=== PATIENT | female | born 1995 | race Caucasian/White ===

== ENCOUNTER 2018-08-06 18:12 | Inpatient (IN) | payer BC ==
[2018-08-06] MEDS ORDERED: Methylergonovine 0.2 MG/1 ML Amp IM PRN (20:09)
[2018-08-06] MEDS ORDERED: Ondansetron 4 MG/2 ML SDV IV PRN (20:09)
[2018-08-06] MEDS ORDERED: Carboprost Tromethamine 250 MCG/1 ML Amp IM PRN (20:09)
[2018-08-06] MEDS ORDERED: Water For Irrigation,Sterile 1,000 ML Container IRR PRN (20:09)
[2018-08-06] MEDS ORDERED: Tranexamic Acid 1,000 MG in Sodium Chloride 0.9% 100 ML IV PRN (20:09)
[2018-08-06] MEDS ORDERED: Sodium Chloride 0.9% 10 ML Syringe FLUSH PRN (20:09)
[2018-08-06] MEDS ORDERED: Misoprostol 200 MCG Tab PO PRN (20:09)
[2018-08-06] MEDS ORDERED: Lidocaine 1% 50 ML MDV INJECT PRN (20:09)
[2018-08-06] MEDS ORDERED: Sodium Chloride 0.9% 2.5 ML Syringe FLUSH PRN (20:09)
[2018-08-06] MEDS ORDERED: Terbutaline 1 MG/ML SDV SUBCUT PRN (20:09)
[2018-08-06] MEDS ORDERED: Nalbuphine 10 MG/1 ML Vial IVPUSH PRN (20:09)
[2018-08-06] MEDS ORDERED: Oxytocin/0.9 % Sodium Chloride 30 UNIT/500 ML BAG IV SCH ×2 (20:15)
[2018-08-06] MEDS ORDERED: Misoprostol 25 MCG (1/4 of 100 MCG) Tab VAG PRN (21:00)
[2018-08-06] MEDS: Lactated Ringers 1,000 ML IV SCH (21:08)
[2018-08-07] MEDS ORDERED: Misoprostol 25 MCG (1/4 of 100 MCG) Tab VAG PRN (01:00)
[2018-08-07] MEDS: Butorphanol 1 MG/ML SDV IVPUSH PRN ×3 (01:42→04:35)
[2018-08-07] MEDS ORDERED: Promethazine 25 MG/ML SDV IM ONE ×2 (02:40→08:56)
[2018-08-07] MEDS: Lactated Ringers 1,000 ML IV SCH ×2 (04:46→05:50)
--- NOTE | 2018-08-07 05:08 | PCM.PREANE ---
Preanesthetic Assessment - Anesthesia/Transfusion/Family Hx Anesthesia History: Prior Anesthesia Without Reaction Family History of Anesthesia Reaction: No Transfusion History: No Prior Transfusion(s) - Review of Systems General: No Symptoms Pulmonary: No Symptoms Cardiovascular: No Symptoms Gastrointestinal: No Symptoms Neurological: No Symptoms Other: Reports: None - Physical Assessment Height: 5 ft Weight: 129.274 kg ASA Class: 3 Thyro-Mental Finger Breadths: 3 Mouth Opening Finger Breadths: 3 Lungs: Clear to Auscultation, Normal Respiratory Effort Cardiovascular: Regular Rate, Regular Rhythm - Lab Values: Laboratory Last Values WBC 9.75 K/uL (4.0-11.0) 08/06/18 20:31 RBC 4.26 M/uL (4.30-5.90) L 08/06/18 20:31 Hgb 13.0 g/dL (12.0-16.0) 08/06/18 20:31 Hct 38.6 % (36.0-46.0) 08/06/18 20:31 MCV 90.6 fL (80.0-98.0) 08/06/18 20:31 MCH 30.5 pg (27.0-32.0) 08/06/18 20:31 MCHC 33.7 g/dL (31.0-37.0) 08/06/18 20:31 RDW Std Deviation 46.0 fl (28.0-62.0) 08/06/18 20:31 RDW Coeff of Darrell 14 % (11.0-15.0) 08/06/18 20:31 Plt Count 166 K/uL (150-400) 08/06/18 20:31 MPV 10.10 fL (7.40-12.00) 08/06/18 20:31 Nucleated RBC % 0.0 /100WBC 08/06/18 20:31 Nucleated RBCs # 0 K/uL 08/06/18 20:31 Blood Type O POSITIVE 08/06/18 20:31 Antibody Screen NEGATIVE 08/06/18 20:31 - Allergies Allergies/Adverse Reactions: Allergies Allergy/AdvReac Type Severity Reaction Status Date / Time Penicillins Allergy Intermediate Hives Verified 07/31/18 21:53 - Acknowledgements Anesthesia Type Planned: Epidural Pt an Appropriate Candidate for the Planned Anesthesia: Yes Alternatives and Risks of Anesthesia Discussed w Pt/Guardian: Yes Pt/Guardian Understands and Agrees with Anesthesia Plan: Yes PreAnesthesia Questionnaire HEENT History: Reports: None Cardiovascular History: Reports: None Respiratory History: Reports: None Gastrointestinal History: Reports: GERD Genitourinary History: Reports: None [employer] History: Reports: , Spontaneous : 3 Para: 0 LMP (Approximate): Musculoskeletal History: Reports: None Neurological History: Reports: None Psychiatric History: Reports: Anxiety Endocrine/Metabolic History: Reports: Obesity/BMI 30+ (Morbid Obesity) Hematologic History: Reports: None Immunologic History: Reports: None Oncologic (Cancer) History: Reports: None Dermatologic History: Reports: None - Infectious Disease History Infectious Disease History: Reports: None - Past Surgical History Female Surgical History: Reports: D&C Other Female Surgeries/Procedures: D&C x2 in 2017 due to spontaneous abortions. Musculoskeletal Surgical History: Reports: Carpal Tunnel Other Musculoskeletal Surgeries/Procedures:: Right carpel tunnel release 2017. - SUBSTANCE USE Smoking Status *Q: Never Smoker Tobacco Use Within Last Twelve Months: No Second Hand Smoke Exposure: No Recreational Drug Use History: No - HOME MEDS Home Medications: Home Meds PNV95/Ferrous Fumarate/FA [ Tablet] 1 each PO DAILY 08/06/18 [History] Sertraline [Zoloft] 50 mg PO BEDTIME 08/06/18 [History] - CURRENT (IN HOUSE) MEDS Current Meds: Current Medications Butorphanol Tartrate (Stadol) 1 mg IVPUSH Q1H PRN PRN Reason: Pain Last Admin: 08/07/18 04:35 Dose: 1 mg Carboprost Tromethamine (Hemabate Ds) 250 mcg IM ASDIRECTED PRN PRN Reason: Post Hemorrhage Tranexamic Acid 1,000 mg/ (Sodium Chloride) 110 mls @ 660 mls/hr IV ONETIME PRN PRN Reason: Bleeding Lactated Ringer's (Ringers, Lactated) 1,000 mls @ 150 mls/hr IV ASDIRECTED SAMARA Last Admin: 08/07/18 04:46 Dose: 150 mls/hr Oxytocin/Sodium Chloride (Oxytocin 30 Unit/500 Ml-Ns) 30 unit in 500 mls @ 999 mls/hr IV TITRATE [facility] Oxytocin/Sodium Chloride (Oxytocin 30 Unit/500 Ml-Ns) 30 unit in 500 mls @ 2 mls/hr IV TITRATE [facility]; Protocol Vancomycin HCl 1 gm/ Sodium (Chloride) 250 mls @ 166 mls/hr IV Q12H [facility] Last Admin: 08/06/18 21:09 Dose: 166 mls/hr Lidocaine HCl (Xylocaine 1%) 50 ml INJECT ONETIME PRN PRN Reason: Laceration repair Methylergonovine Maleate (Methergine) 0.2 mg IM ASDIRECTED PRN PRN Reason: Post Hemorrhage Misoprostol (Cytotec) 200 mcg PO ONETIME PRN PRN Reason: Post Hemorrhage Misoprostol (Cytotec) 25 mcg VAG ONETIME PRN PRN Reason: Cervical Ripening Last Admin: 08/06/18 20:45 Dose: 25 mcg Misoprostol (Cytotec) 25 mcg VAG Q4H PRN PRN Reason: Cervical Ripening Last Admin: 08/07/18 01:43 Dose: 25 mcg Nalbuphine HCl (Nubain) 10 mg IVPUSH Q1H PRN PRN Reason: Pain (severe 7-10) Ondansetron HCl (Zofran) 4 mg IV Q6H PRN PRN Reason: Nausea/Vomiting Sodium Chloride (Saline Flush) 10 ml FLUSH ASDIRECTED PRN PRN Reason: Keep Vein Open Sodium Chloride (Saline Flush) 2.5 ml FLUSH ASDIRECTED PRN PRN Reason: Keep Vein Open Sterile Water (Sterile Water For Irrigation) 1,000 ml IRR ASDIRECTED PRN PRN Reason: delivery Terbutaline Sulfate (Brethine) 0.25 mg SUBCUT ASDIRECTED PRN PRN Reason: Tacysystole Discontinued Medications Vancomycin HCl 1 gm/ Sodium (Chloride) 250 mls @ 166 mls/hr IV Q12H [facility] Promethazine HCl (Phenergan) 12.5 mg IM ONETIME ONE Stop: 08/07/18 02:41 Last Admin: 08/07/18 02:56 Dose: 12.5 mg
[2018-08-07] MEDS ORDERED: Lidocaine HCl/EPINEPHrine 5 ML IJ ONE (05:17)
[2018-08-07] MEDS ORDERED: Morphine 10 MG/ML Syringe ONE (08:49)
[2018-08-07] MEDS ORDERED: Morphine 10 MG/ML Syringe IVPUSH ONE (08:55)
[2018-08-07] MEDS ORDERED: Promethazine 25 MG/ML SDV ONE (08:57)
--- NOTE | 2018-08-07 09:58 | PCM.DEL ---
L & D Note - General Info Date of Service: 08/07/18 Mother's Due Date: 08/14/18 - Delivery Note Cervical Ripening Method: Misoprostil Delivery Outcome: Livebirth Presentation: Vertex Nuchal Cord: None Anesthesia Type: Epidural Anesthetic: Lidocaine (Xylocaine) 1% Plain Local Anesthetic Volume: 4cc Amniotic Fluid Description: Meconium Stained Episiotomy Type: Right Mediolateral Laceration: 3rd Degree Suture type: Vicryl (2.0 for anal sphincter and Monocryl 2.0 for perineal laceration ) Placenta: Intact Cord: 3 Vessels Estimated Blood Loss: 500 Resuscitation Needed: No Score 1 min: 4 Score 5 min: 9 Post Delivery Events: Shoulder Dystocia Second Stage Interventions: Reports: Pushing, McRobert's Position, Other (see below) (suprapubic and Rubins , failed delivery of posterior shoulder ) Delivery Comments (Free Text/Narrative):: Live female delivered at 835am , head delivered at 8.33, 30 secs and body delivered at 8.35am.Weight 4190g , shoulder dystocia noted after delivery of the head with turtle signs . attempt made with suprapubic and mc mahoney , then delivery of posterior shoulder attempted not successful . the rotated with the back facing mother right side then anterior shoulder attempted to be delivered and then delivered after an episiotomy . baby given to pediatric team for resuscitation - General Info Date of Service: 08/07/18 - Patient Data Weight - Most Recent: 129.274 kg Lab Results Last 24 Hours: Laboratory Results - last 24 hr 08/06/18 08/06/18 Range/Units 20:31 20:31 WBC 9.75 (4.0-11.0) K/uL RBC 4.26 L (4.30-5.90) M/uL Hgb 13.0 (12.0-16.0) g/dL Hct 38.6 (36.0-46.0) % MCV 90.6 (80.0-98.0) fL MCH 30.5 (27.0-32.0) pg MCHC 33.7 (31.0-37.0) g/dL RDW Std Deviation 46.0 (28.0-62.0) fl RDW Coeff of Darrell 14 (11.0-15.0) % Plt Count 166 (150-400) K/uL MPV 10.10 (7.40-12.00) fL Nucleated RBC % 0.0 /100WBC Nucleated RBCs # 0 K/uL Blood Type O POSITIVE Antibody Screen NEGATIVE Med Orders - Current: Current Medications Butorphanol Tartrate (Stadol) 1 mg IVPUSH Q1H PRN PRN Reason: Pain Last Admin: 08/07/18 04:35 Dose: 1 mg Carboprost Tromethamine (Hemabate Ds) 250 mcg IM ASDIRECTED PRN PRN Reason: Post Hemorrhage Last Admin: 08/07/18 09:31 Dose: 250 mcg Tranexamic Acid 1,000 mg/ (Sodium Chloride) 110 mls @ 660 mls/hr IV ONETIME PRN PRN Reason: Bleeding Lactated Ringer's (Ringers, Lactated) 1,000 mls @ 150 mls/hr IV ASDIRECTED SAMARA Last Admin: 08/07/18 05:50 Dose: 150 mls/hr Oxytocin/Sodium Chloride (Oxytocin 30 Unit/500 Ml-Ns) 30 unit in 500 mls @ 999 mls/hr IV TITRATE [facility] Last Admin: 08/07/18 08:54 Dose: 999 mls/hr Oxytocin/Sodium Chloride (Oxytocin 30 Unit/500 Ml-Ns) 30 unit in 500 mls @ 2 mls/hr IV TITRATE [facility]; Protocol Vancomycin HCl 1 gm/ Sodium (Chloride) 250 mls @ 166 mls/hr IV Q12H [facility] Last Admin: 08/06/18 21:09 Dose: 166 mls/hr Lidocaine HCl (Xylocaine 1%) 50 ml INJECT ONETIME PRN PRN Reason: Laceration repair Last Admin: 08/07/18 08:52 Dose: 50 ml Methylergonovine Maleate (Methergine) 0.2 mg IM ASDIRECTED PRN PRN Reason: Post Hemorrhage Misoprostol (Cytotec) 200 mcg PO ONETIME PRN PRN Reason: Post Hemorrhage Misoprostol (Cytotec) 25 mcg VAG ONETIME PRN PRN Reason: Cervical Ripening Last Admin: 08/06/18 20:45 Dose: 25 mcg Misoprostol (Cytotec) 25 mcg VAG Q4H PRN PRN Reason: Cervical Ripening Last Admin: 08/07/18 01:43 Dose: 25 mcg Nalbuphine HCl (Nubain) 10 mg IVPUSH Q1H PRN PRN Reason: Pain (severe 7-10) Ondansetron HCl (Zofran) 4 mg IV Q6H PRN PRN Reason: Nausea/Vomiting Sodium Chloride (Saline Flush) 10 ml FLUSH ASDIRECTED PRN PRN Reason: Keep Vein Open Sodium Chloride (Saline Flush) 2.5 ml FLUSH ASDIRECTED PRN PRN Reason: Keep Vein Open Sterile Water (Sterile Water For Irrigation) 1,000 ml IRR ASDIRECTED PRN PRN Reason: delivery Terbutaline Sulfate (Brethine) 0.25 mg SUBCUT ASDIRECTED PRN PRN Reason: Tacysystole Discontinued Medications Vancomycin HCl 1 gm/ Sodium (Chloride) 250 mls @ 166 mls/hr IV Q12H [facility] Fentanyl/Bupivacaine HCl (Iebuitxi-Vocon-Ay 2 Mcg/Ml-0.125%) Confirm Administered Dose 100 mls @ as directed .ROUTE .STK-MED ONE Stop: 08/07/18 05:18 Lidocaine/Epinephrine (Lidocaine 1.5%-Epi 1:200,000) Confirm Administered Dose 5 ml IJ .STK-MED ONE Stop: 08/07/18 05:18 Morphine Sulfate (Morphine) Confirm Administered Dose 10 mg .ROUTE .STK-MED ONE Stop: 08/07/18 08:50 Morphine Sulfate (Morphine) 6 mg IVPUSH ONETIME ONE Stop: 08/07/18 08:56 Last Admin: 08/07/18 08:51 Dose: 6 mg Promethazine HCl (Phenergan) 12.5 mg IM ONETIME ONE Stop: 08/07/18 02:41 Last Admin: 08/07/18 02:56 Dose: 12.5 mg Promethazine HCl (Phenergan) 25 mg IM ONETIME ONE Stop: 08/07/18 08:57 Last Admin: 08/07/18 09:02 Dose: 25 mg Promethazine HCl (Phenergan) Confirm Administered Dose 25 mg .ROUTE .STK-MED ONE Stop: 08/07/18 08:58 - Problem List & Annotations (1) Shoulder dystocia during labor and delivery, delivered SNOMED Code(s): 085402975, 768554040 Code(s): O66.0 - OBSTRUCTED LABOR DUE TO SHOULDER DYSTOCIA Status: Acute Current Visit: Yes - Problem List Review Problem List Initiated/Reviewed/Updated: Yes - My Orders Last 24 Hours: My Active Orders 08/06/18 21:00 Vancomycin [Vancocin] 1 gm Sodium Chloride 0.9% [Normal Saline] 250 ml IV Q12H
[2018-08-07] MEDS ORDERED: Bisacodyl 10 MG Supp RECTAL PRN (10:06)
[2018-08-07] MEDS ORDERED: Ibuprofen 400 MG Tab PO PRN (10:06)
[2018-08-07] MEDS ORDERED: Benzocaine/Menthol 20%-0.5% Spray 78 GM Cannister TOP PRN (10:06)
[2018-08-07] MEDS ORDERED: Witch Hazel Medicated Pads 40/Jar TOP PRN (10:06)
[2018-08-07] MEDS ORDERED: Acetaminophen 500 MG Tab PO PRN ×2 (10:06)
[2018-08-07] MEDS ORDERED: Docusate Sodium 100 MG Cap PO PRN (10:06)
[2018-08-07] MEDS ORDERED: Lanolin 100% Cream 7 GM Tube TOP PRN (10:06)
[2018-08-07] MEDS ORDERED: oxyCODONE 5 MG Tab PO PRN (10:06)
[2018-08-07] MEDS: Ibuprofen 800 MG Tab PO PRN (17:10)
[2018-08-08] MEDS: Ibuprofen 800 MG Tab PO PRN ×3 (02:47→20:43)
--- NOTE | 2018-08-08 10:55 | PCM.PNPP ---
- General Info Date of Service: 08/08/18 Functional Status: Reports: Pain Controlled, Tolerating Diet, Ambulating, Urinating - Review of Systems General: Reports: No Symptoms HEENT: Reports: No Symptoms Pulmonary: Reports: No Symptoms Cardiovascular: Reports: No Symptoms Gastrointestinal: Reports: No Symptoms Genitourinary: Reports: No Symptoms Musculoskeletal: Reports: No Symptoms Skin: Reports: No Symptoms Neurological: Reports: No Symptoms Psychiatric: Reports: No Symptoms - Patient Data Vital Signs - Most Recent: Last Vital Signs Temp 36.1 C 08/08/18 08:25 Pulse 97 08/08/18 08:25 Resp 18 08/08/18 08:25 BP 115/53 L 08/08/18 08:25 Pulse Ox 97 08/08/18 08:25 Weight - Most Recent: 129.274 kg Lab Results - Last 24 Hours: Laboratory Results - last 24 hr 08/08/18 Range/Units 05:57 Hgb 10.6 L (12.0-16.0) g/dL Hct 32.2 L (36.0-46.0) % Med Orders - Current: Current Medications Acetaminophen (Tylenol Extra Strength) 500 mg PO Q4H PRN PRN Reason: Pain Acetaminophen (Tylenol Extra Strength) 1,000 mg PO Q4H PRN PRN Reason: Pain Benzocaine/Menthol (Dermoplast Pain Relief 20%-0.5% Globe) 78 gm TOP ASDIRECTED PRN PRN Reason: Perineal Comfort Measure Last Admin: 08/07/18 12:40 Dose: 1 can Bisacodyl (Dulcolax) 10 mg RECTAL ONETIME PRN PRN Reason: Constipation Carboprost Tromethamine (Hemabate Ds) 250 mcg IM ASDIRECTED PRN PRN Reason: Post Hemorrhage Last Admin: 08/07/18 09:31 Dose: 250 mcg Docusate Sodium (Colace) 100 mg PO BID PRN PRN Reason: Constipation Emollient Ointment (Lansinoh Hpa) 0 gm TOP ASDIRECTED PRN PRN Reason: Sore Nipples Tranexamic Acid 1,000 mg/ (Sodium Chloride) 110 mls @ 660 mls/hr IV ONETIME PRN PRN Reason: Bleeding Lactated Ringer's (Ringers, Lactated) 1,000 mls @ 150 mls/hr IV ASDIRECTED SAMARA Last Admin: 08/07/18 05:50 Dose: 150 mls/hr Oxytocin/Sodium Chloride (Oxytocin 30 Unit/500 Ml-Ns) 30 unit in 500 mls @ 999 mls/hr IV TITRATE [facility] Last Admin: 08/07/18 08:54 Dose: 999 mls/hr Oxytocin/Sodium Chloride (Oxytocin 30 Unit/500 Ml-Ns) 30 unit in 500 mls @ 2 mls/hr IV TITRATE [facility]; Protocol Ibuprofen (Motrin) 400 mg PO Q4H PRN PRN Reason: Pain Ibuprofen (Motrin) 800 mg PO Q6H PRN PRN Reason: Pain Last Admin: 08/08/18 02:47 Dose: 800 mg Lidocaine HCl (Xylocaine 1%) 50 ml INJECT ONETIME PRN PRN Reason: Laceration repair Last Admin: 08/07/18 08:52 Dose: 50 ml Misoprostol (Cytotec) 200 mcg PO ONETIME PRN PRN Reason: Post Hemorrhage Misoprostol (Cytotec) 25 mcg VAG ONETIME PRN PRN Reason: Cervical Ripening Last Admin: 08/06/18 20:45 Dose: 25 mcg Ondansetron HCl (Zofran) 4 mg IV Q6H PRN PRN Reason: Nausea/Vomiting Oxycodone HCl (Oxycodone) 5 mg PO Q2H PRN PRN Reason: Pain Sodium Chloride (Saline Flush) 10 ml FLUSH ASDIRECTED PRN PRN Reason: Keep Vein Open Sodium Chloride (Saline Flush) 2.5 ml FLUSH ASDIRECTED PRN PRN Reason: Keep Vein Open Sterile Water (Sterile Water For Irrigation) 1,000 ml IRR ASDIRECTED PRN PRN Reason: delivery Witch Kelli (Tucks) 1 pad TOP ASDIRECTED PRN PRN Reason: comfort care Last Admin: 08/07/18 12:40 Dose: 1 tub Discontinued Medications Butorphanol Tartrate (Stadol) 1 mg IVPUSH Q1H PRN PRN Reason: Pain Last Admin: 08/07/18 04:35 Dose: 1 mg Vancomycin HCl 1 gm/ Sodium (Chloride) 250 mls @ 166 mls/hr IV Q12H [facility] Vancomycin HCl 1 gm/ Sodium (Chloride) 250 mls @ 166 mls/hr IV Q12H [facility] Last Admin: 08/07/18 09:00 Dose: Not Given Fentanyl/Bupivacaine HCl (Zgdahekl-Eeafe-Dh 2 Mcg/Ml-0.125%) Confirm Administered Dose 100 mls @ as directed .ROUTE .STK-MED ONE Stop: 08/07/18 05:18 Last Admin: 08/07/18 20:35 Dose: Not Given Lidocaine/Epinephrine (Lidocaine 1.5%-Epi 1:200,000) Confirm Administered Dose 5 ml IJ .STK-MED ONE Stop: 08/07/18 05:18 Last Admin: 08/07/18 20:35 Dose: Not Given Methylergonovine Maleate (Methergine) 0.2 mg IM ASDIRECTED PRN PRN Reason: Post Hemorrhage Misoprostol (Cytotec) 25 mcg VAG Q4H PRN PRN Reason: Cervical Ripening Last Admin: 08/07/18 01:43 Dose: 25 mcg Morphine Sulfate (Morphine) Confirm Administered Dose 10 mg .ROUTE .STGFS IT-MED ONE Stop: 08/07/18 08:50 Last Admin: 08/07/18 20:35 Dose: Not Given Morphine Sulfate (Morphine) 6 mg IVPUSH ONETIME ONE Stop: 08/07/18 08:56 Last Admin: 08/07/18 08:51 Dose: 6 mg Nalbuphine HCl (Nubain) 10 mg IVPUSH Q1H PRN PRN Reason: Pain (severe 7-10) Promethazine HCl (Phenergan) 12.5 mg IM ONETIME ONE Stop: 08/07/18 02:41 Last Admin: 08/07/18 02:56 Dose: 12.5 mg Promethazine HCl (Phenergan) 25 mg IM ONETIME ONE Stop: 08/07/18 08:57 Last Admin: 08/07/18 09:02 Dose: 25 mg Promethazine HCl (Phenergan) Confirm Administered Dose 25 mg .ROUTE .STGFS IT-MED ONE Stop: 08/07/18 08:58 Last Admin: 08/07/18 20:35 Dose: Not Given Terbutaline Sulfate (Brethine) 0.25 mg SUBCUT ASDIRECTED PRN PRN Reason: Tacysystole - Interaction Disposition, : Elbert in Room with Family Interaction: Unable to Hold at this Time Feeding: Breastfed ; Nursed Well Support Person: - Recovery Exam Fundal Tone: Firm Fundal Level: 1 Fingerbreadths Below Umbilicus Fundal Placement: Midline Lochia Amount: Scant Lochia Color: Rubra/Red Perineum Description: Intact, Minimal Bruising/Swelling Other Perinuem Description: 3rd degree episiotomy Episiotomy/Laceration: Approximated Bladder Status: Voiding - Exam General: Alert, Oriented Neck: Supple Lungs: Normal Respiratory Effort GI/Abdominal Exam: Soft, Non-Tender Extremities: Normal Inspection, Normal Range of Motion, Non-Tender, No Pedal Edema Skin: Warm Wound/Incisions: Healing Well Neurological: No New Focal Deficit Psy/Mental Status: Alert, Normal Affect, Normal Mood - Problem List & Annotations (1) Vaginal delivery SNOMED Code(s): 270991425 Code(s): O80 - ENCOUNTER FOR FULL-TERM UNCOMPLICATED DELIVERY Status: Acute Current Visit: Yes (2) Shoulder dystocia during labor and delivery, delivered SNOMED Code(s): 105566629, 662547604 Code(s): O66.0 - OBSTRUCTED LABOR DUE TO SHOULDER DYSTOCIA Status: Acute Current Visit: Yes - Problem List Review Problem List Initiated/Reviewed/Updated: Yes - Assessment Assessment:: PPD#1 after , complicated by shoulder dystocia. Baby is moving arm today. Minimal lochia, minimal pain. Received Vancomycin for GBS prophlaxis, greater than 4 hours prior to delivery, however family specialist would like to keep baby another day due to not being able to take ampicillin. - Plan Plan:: Continue care.
--- NOTE | 2018-08-10 09:50 | OR ---
SURGEON: DAMARIS CROOK DATE OF PROCEDURE: 08/07/2018 PREOPERATIVE DIAGNOSIS: A 23-year-old, G3, P0-0-2-0 at 39 weeks 0 days, undergoing induction of labor. POSTOPERATIVE DIAGNOSES: 1. A 23-year-old, G3, P0-0-2-0 at 39 weeks 0 days, undergoing induction of labor. 2. Group B streptococcus positive. 3. Status post shoulder dystocia. ANESTHESIA: Epidural. PROCEDURES: 1. Vaginal delivery, complicated by shoulder dystocia. 2. Repair of right mediolateral laceration with third-degree laceration. NOTABLE FINDINGS: Live female delivered at 0835 hours. scores were 4 and 9. However, delivery of the head was 0833 hours and 30 seconds. There was a turtle sign noted after delivery of the head, and a suprapubic maneuver was done; and also Wanda position, which did not relieve the dystocia. Episiotomy was then done and rotation of the head with the back to the maternal right with then delivery of the anterior and posterior shoulders. A third-degree laceration was noted, affecting the superficial part of the external anal sphincter. BRIEF HISTORY ABOUT THE PATIENT: The patient also had induction for proteinuria. The patient received Cytotec. Tracing was category 1. She made rapid progress and became fully dilated. PROCEDURE IN DETAIL: With the patient being fully dilated, she was encouraged to push. She pushed; the head was noted to be delivered. Turtle sign was noted with retraction of the head. Then, the shoulder dystocia was called at 0833 and 30 seconds. The patient was notified of this, and Wanda position was done, and also suprapubic maneuver was attempted. after which an episiotomy was cut. There was an attempt to deliver the posterior shoulder, which was not successful. As a result, the baby was rotated clockwisely , and the anterior shoulder was then delivered followed by the posterior shoulder. The was placed on the maternal abdomen and was given to the awaiting dust operator. Cord was promptly clamped and cut. The placenta was then delivered via controlled cord traction. Hemabate was given. Because the patient was complaining of pain, she was also given morphine and Phenergan, after which she relaxed. The episiotomy incision was then repaired. Then, an Allis was used to grab the right side of the external sphincter, an overlapping incision was then made, and then with 2-0 Vicryl. The episiotomy was repaired with 2-0 Monocryl. All instrument and pad counts were correct x2. The patient was left in the L &D room in stable condition. GE GAMA /[id number] MTDDavid
== END 2018-08-09 09:30 | disposition home or self-care (01) | DRG 542 ==
LOC: MW.OBCHECK 18:12 → MW.OB 20:09 → OBSVTOIN 08-07 08:35 → MW.OB 08-07 12:45
PROVIDERS: ADMIT Obstetrics & Gynecology; ATTEND Obstetrics & Gynecology
PROC: 10E0XZZ Delivery of Products of Conception, External Approach (ICD-10-PCS; principal; 2018-08-07)
PROC: 0W8NXZZ Division of Female Perineum, External Approach (ICD-10-PCS; principal; 2018-08-07)
PROC: 0DQR0ZZ Repair Anal Sphincter, Open Approach (ICD-10-PCS; principal; 2018-08-07)
PROC: 3E0P7VZ Introduction of Hormone into Female Reproductive, Via Natural or Artificial Opening (ICD-10-PCS; principal; 2018-08-07)
PROC: 00HU33Z Insertion of Infusion Device into Spinal Canal, Percutaneous Approach (ICD-10-PCS; 2018-08-07)
PROC: 3E0R3BZ Introduction of Anesthetic Agent into Spinal Canal, Percutaneous Approach (ICD-10-PCS; 2018-08-07)
DX: O99.344 Other mental disorders complicating childbirth (principal); O70.20 Third degree perineal laceration during delivery, unspecified; O99.214 Obesity complicating childbirth; E66.01 Morbid (severe) obesity due to excess calories; O99.824 Streptococcus B carrier state complicating childbirth; O77.0 Labor and delivery complicated by meconium in amniotic fluid; F41.9 Anxiety disorder, unspecified; O66.0 Obstructed labor due to shoulder dystocia; O12.14 Gestational proteinuria, complicating childbirth; Z3A.39 39 weeks gestation of pregnancy; Z37.0 Single live birth; Z88.1 Allergy status to other antibiotic agents; Z88.0 Allergy status to penicillin
CPT/HCPCS: 36415; 59025; 59409; 85014; 85018; 85027; 86850; 86900; 86901; A9270-GY; J0595; J2001; J2270; J2550; J2590; J3370; J7050; J7120